=== PATIENT | female | born 1995 | race African-American/Black ===

== ENCOUNTER 2020-11-27 22:58 | Emergency (ER) | payer SELFPAY ==
[~2020-11-27] VITALS: Ht 175.3 cm; Wt 61.0 kg
[2020-11-27] MEDS ORDERED: PENICILLIN G BENZATHINE 1,200,000 UNITS/2ML SYR IM ONE (23:30)
[2020-11-27] MEDS ORDERED: DEXAMETHASONE 4MG/ML 1ML VIAL IV ONE (23:30)
[2020-11-27] MEDS ORDERED: IBUPROFEN 800MG TABLET PO ONE (23:30)
[2020-11-28 01:07] VITALS: BP 118/70
== END 2020-11-28 01:29 | disposition home or self-care (01) ==
LOC: ER 22:58
DX: J02.9 Acute pharyngitis, unspecified (principal); F17.290 Nicotine dependence, other tobacco product, uncomplicated; F12.10 Cannabis abuse, uncomplicated
CPT/HCPCS: 96372; 96374; 99283; J0561; J1100

== ENCOUNTER 2021-05-26 17:39 | Emergency (ER) | payer SELFPAY ==
[~2021-05-26] VITALS: Ht 170.2 cm; Wt 66.0 kg
[2021-05-26] MEDS ORDERED: ERYT1OIN6 EACHEYE (18:58)
[2021-05-26] MEDS ORDERED: LORA-1087 MT (18:59)
[2021-05-26 19:15] VITALS: BP 105/71
== END 2021-05-26 19:18 | disposition home or self-care (01) ==
LOC: ER 17:39
DX: H10.022 Other mucopurulent conjunctivitis, left eye (principal); F12.10 Cannabis abuse, uncomplicated
CPT/HCPCS: 81025; 99283

== ENCOUNTER 2021-12-30 20:04 | Emergency (ER) | payer MEDICAID ==
[~2021-12-30] VITALS: Ht 170.2 cm; Wt 64.0 kg
[~2021-12-30 20:04] MED LIST: ERYT1OIN6 EACHEYE; LORA-1087 MT
[2021-12-30 20:30] VITALS: BP 109/70
[2021-12-30] MEDS ORDERED: SODIUM CHLORIDE 0.9% 1,000 ML IV ONE (22:30)
== END 2021-12-31 01:40 | disposition left against medical advice (07) ==
LOC: ER 20:04
DX: Z53.21 Procedure and treatment not carried out due to patient leaving prior to being seen by health care provider (principal)
CPT/HCPCS: 99281; J7030